=== PATIENT | male | born 1950 | race Two or more races ===

== ENCOUNTER 2017-03-24 08:25 | Day surgery (SDC) | payer OTHER ==
[2017-03-23 13:55] VITALS: BMI 27.9
[2017-03-24] MEDS ORDERED: PROPOFOL 20 ML ONE ×3 (10:16)
[2017-03-24 10:59] VITALS: TEMP 97
[2017-03-24 11:00] VITALS: PULSE 64
[2017-03-24 12:05] VITALS: BP 130/58
--- NOTE | 2017-03-25 13:00 | PATH ---
Surgical Pathology Report Patient Name: BRIANA JIMENES [facility]. Rec. #: [id number] /Age/Gender: 1950 (Age: 66) / M Account: [id number] Location: U-ENDOSCOPY Taken: 03/24/2017 Received: 03/24/2017 Reported: 03/25/2017 Physicians: Gonzalo Araujo M.D. Specimen(s) Received A: BX CECAL POLYP B: BX TRANSVERSE COLON POLYP C: BX RECTUM Clinical History Screening/constipation Cecal polyps/rectal cancer Final Diagnosis A. COLON, CECUM, SNARE POLYPECTOMY: MULTIPLE PORTIONS OF TUBULAR ADENOMA. B. COLON, TRANSVERSE, SNARE POLYPECTOMY: TUBULAR ADENOMA C. 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 Comment: This case was discussed with Dr. Araujo on March 25, 2017. MisMatch Repair Protein analysis by immunohistochemistry is pending, and a report will follow. Electronically Signed Javad Taylor M.D. Addendum Reported: 03/26/2017 Addendum Diagnosis Immunohistochemical stains for MisMatch Repair Protein Analysis performed at [facility] in [place], [place] ([id number]) and interpreted at [facility] show the following: RESULTS: HMLH-1 INTACT NUCLEAR EXPRESSION HMSH-2 INTACT NUCLEAR EXPRESSION HMSH-6 INTACT NUCLEAR EXPRESSION PMS2 INTACT NUCLEAR EXPRESSION INTERPRETATION: No loss of nuclear expression of MMR proteins: low probability of microsatellite instability-high (MSI-H) Javad Taylor M.D. Gross Description A. Received in formalin, labeled "hot snared cecal polyp" are 9 tucker, irregular portions of soft tissue measuring 0.4-1.2 cm. in greatest dimension. The specimens are submitted in toto in 2 cassette. B. Received in formalin, labeled "hot snared transverse colon polyp" are 3 tucker, irregular portions of soft tissue measuring 0.3 cm. in greatest dimension. The specimens are submitted in toto in one cassette. C. Received in formalin, labeled "biopsy rectal cancer" are multiple tucker, irregular portions of soft tissue measuring 0.1-0.7 cm. in greatest dimension. The specimens are submitted in toto in one cassette. DINO/03/24/2017 [facility]/03/24/2017
== END 2017-03-24 12:05 | disposition home or self-care (01) ==
LOC: JASU-ENDO 08:25
PROVIDERS: ATTEND Internal Medicine Gastroenterology
PROC: 0DBL8ZX Excision of Transverse Colon, Via Natural or Artificial Opening Endoscopic, Diagnostic (ICD-10-PCS; 2017-03-24)
PROC: 0DBP8ZX Excision of Rectum, Via Natural or Artificial Opening Endoscopic, Diagnostic (ICD-10-PCS; 2017-03-24)
PROC: 0DBH8ZX Excision of Cecum, Via Natural or Artificial Opening Endoscopic, Diagnostic (ICD-10-PCS; principal; 2017-03-24 11:30)
DX: C20 Malignant neoplasm of rectum (principal); D12.0 Benign neoplasm of cecum; D12.3 Benign neoplasm of transverse colon
CPT/HCPCS: 88305-TC

== ENCOUNTER 2018-09-08 06:20 | Day surgery (SDC) | payer OTHER ==
[2018-09-07 12:09] VITALS: BMI 27.7
[~2018-09-08 06:20] MED LIST: ACETAMINOPHEN 325 MG TABLET (FP) PO PRN; CYCLOPENTOLATE HCL 1% OPHTH SOLN 2 ML BOTTLE OP SCH; KETOROLAC TROMETHAMINE 0.5% EYE DROP 1 DROP DROPS OP SCH; OFLOXACIN 0.3% OPHTHALMIC SOLUTION 5 ML BOTTLE OP SCH; PHENYLEPHRINE 2.5% OPHTH SOLN 15 ML BOTTLE OP SCH; TROPICAMIDE 1% OPHTH SOLN 15 ML BOTTLE OP SCH
[2018-09-08] MEDS ORDERED: TROPICAMIDE 1% OPHTH SOLN 15 ML BOTTLE OS ONE ×3 (06:50→07:15)
[2018-09-08] MEDS ORDERED: KETOROLAC TROMETHAMINE 0.5% EYE DROP 1 DROP DROPS OS ONE ×3 (06:50→07:15)
[2018-09-08] MEDS ORDERED: CYCLOPENTOLATE HCL 1% OPHTH SOLN 2 ML BOTTLE OS ONE ×3 (06:50→07:15)
[2018-09-08] MEDS ORDERED: OFLOXACIN 0.3% OPHTHALMIC SOLUTION 5 ML BOTTLE OS ONE ×3 (06:50→07:15)
[2018-09-08] MEDS ORDERED: PHENYLEPHRINE 2.5% OPHTH SOLN 15 ML BOTTLE OS ONE ×3 (06:50→07:15)
[2018-09-08 06:51] VITALS: TEMP 98.3
[2018-09-08] MEDS ORDERED: TETRACAINE 0.5% OPHTH SOLN 2 ML BOTTLE OS ONE (08:10)
[2018-09-08] MEDS ORDERED: POVIDONE-IODINE 5% OPHTHALMIC PREP 30 ML SOLUTION OS ONE (08:12)
[2018-09-08] MEDS ORDERED: CHONDROITIN SU A/HYALUR SOD 1 KIT IO ONE (08:22)
[2018-09-08] MEDS ORDERED: LIDOCAINE HCL 1% PRESERVATIVE FREE - 30ML VIAL IO ONE (08:22)
[2018-09-08] MEDS ORDERED: BSS (NA/CA/MG/K) BALANCED SALT SOLUTION OPHTH SOLN 15 ML BOTTLE OS ONE (08:22)
[2018-09-08] MEDS ORDERED: EPINEPHrine/PF 1 MG/1 ML (1:1,000) AMPULE SQ ONE (08:30)
[2018-09-08] MEDS ORDERED: CYCLOPENTOLATE HCL 1% OPHTH SOLN 2 ML BOTTLE OP SCH (09:15)
[2018-09-08] MEDS ORDERED: KETOROLAC TROMETHAMINE 0.5% EYE DROP 1 DROP DROPS OP SCH (09:15)
[2018-09-08] MEDS ORDERED: PHENYLEPHRINE 2.5% OPHTH SOLN 15 ML BOTTLE OP SCH (09:15)
[2018-09-08] MEDS ORDERED: TROPICAMIDE 1% OPHTH SOLN 15 ML BOTTLE OP SCH (09:15)
[2018-09-08] MEDS ORDERED: OFLOXACIN 0.3% OPHTHALMIC SOLUTION 5 ML BOTTLE OP SCH (09:15)
--- NOTE | 2018-09-08 09:23 | SPEC ---
DATE OF OPERATION: DATE OF DICTATION: 09/08/2018 PREOPERATIVE DIAGNOSIS: Cataract, left eye. POSTOPERATIVE DIAGNOSIS: Cataract, left eye. OPERATION: Phacoemulsification of left eye cataract with posterior chamber intraocular lens implantation, left eye. Lens used [id number], 23.5 diopter power, serial number [id number]. SURGEON: Macarena Thomas M.D. ANESTHESIA: Topical MAC. COMPLICATIONS: None. PROCEDURE: The patient was brought to the operating room and correctly identified along with the operative site and the correct intraocular lens boone. The patient was then prepped and draped in the usual sterile fashion including 5% Betadine solution in the conjunctival sac and an eyelid drape. An eyelid speculum was then placed in the eye. A paracentesis port was created and approximately 0.5 mL of preservative free Lidocaine was then injected into the eye. Viscoelastic was then injected to inflate the anterior chamber. A temporal clear corneal wound was created. A continuous circular capsulorrhexis was performed. The nucleus was then hydrodissected with BSS and removed with phacoemulsification. The remaining cortical material was irrigated and aspirated. Viscoelastic was injected to inflate the capsular bag and the intraocular lens was then implanted into the capsular bag. The remaining Viscoelastic was irrigated and aspirated from the eye. The IOL was noted to be well centered and completely covered by the anterior capsulorrhexis. Topical vancomycin was placed and the eye patched and shielded. All wounds were tested and found to be watertight. No suture was placed. The eye was then shielded. The patient was then discharged from the operating room in stable condition. MACARENA THOMAS M.D. [id number]
[2018-09-08 09:43] VITALS: BP 147/75; PULSE 76
== END 2018-09-08 09:35 | disposition home or self-care (01) ==
LOC: JASU-SURG 06:20
PROVIDERS: ATTEND Ophthalmology
PROC: 08RK3JZ Replacement of Left Lens with Synthetic Substitute, Percutaneous Approach (ICD-10-PCS; principal; 2018-09-08 08:00)
DX: H26.9 Unspecified cataract (principal)
CPT/HCPCS: 82962